=== PATIENT | male | born 1970 | race Caucasian/White ===

== ENCOUNTER 2025-04-16 07:53 | Outpatient (CLI) | payer BC ==
[2025-04-16 09:21] LABS: #Basophils 0.05 10x3/uL (0.0-0.2); #Eosinophils 0.12 10x3/uL (0.0-0.7); #Monocytes 0.61 10x3/uL (0.11-0.59); #Neutrophils 3.04 10x3/uL (1.40-6.50); %Basophils 0.7 % (0.0-1.0); %Eosinophils 1.8 % (0.0-10.0); %Lymphocytes 42.4 % (21.0-51.0); %Monocytes 9.1 % (0.0-10.0); %Neutrophils 45.7 % (42.0-75.0); Hematocrit 49.8 % (42.0-52.0); Hemoglobin 16.2 g/dL (14.0-18.0); Mean Corpuscular Hemoglobin 27.7 pg (27.0-31.0); Mean Corpuscular Volume 85.3 fL (78.0-98.0); Platelet Count 226 10x3/uL (130-400); Red Blood Cell (RBC) Count 5.84 mill/uL (4.70-6.10); White Blood Cell (WBC) Count 6.67 10x3/uL (4.8-10.8)
[2025-04-16 09:44] LABS: INR-International Normal Ratio 1.0; Prothrombin Time 13.4 sec (12.0-14.7)
== END 2025-04-16 07:54 | disposition home or self-care (01) ==
LOC: LABBT 07:53
PROVIDERS: ATTEND Orthopaedic Surgery
DX: Z01.818 Encounter for other preprocedural examination (principal); M18.12 Unilateral primary osteoarthritis of first carpometacarpal joint, left hand
CPT/HCPCS: 85025; 85610; 87081; 93005; 93010